=== PATIENT | female | born 1940 | race Caucasian/White ===

== ENCOUNTER 2021-12-04 12:22 | Emergency (ER) | payer MEDICARE ==
[~2021-12-04] VITALS: Ht 160 cm; Wt 47.6 kg
--- NOTE | 2021-12-04 12:43 | NUR ---
Dr Godinez at the bedside for MSE.
[2021-12-04] MEDS ORDERED: ACETAMINOPHEN ES 500 MG TABLET PO ONE (12:45)
[2021-12-04] MEDS ORDERED: SENN-92 PO (12:50)
[2021-12-04] MEDS ORDERED: AMLO-212 PO (12:50)
[2021-12-04] MEDS ORDERED: ASPI81TA31 PO (12:50)
[2021-12-04] MEDS ORDERED: MELA3TAB41 PO (12:50)
[2021-12-04] MEDS ORDERED: RIVA10TA PO (12:50)
[2021-12-04] MEDS ORDERED: DIGO125T PO (12:50)
[2021-12-04] MEDS ORDERED: ESCI20TA PO (12:50)
[2021-12-04] MEDS ORDERED: ATOR40TA PO (12:50)
[2021-12-04] MEDS ORDERED: METO50TA16 PO (12:50)
[2021-12-04] MEDS ORDERED: ACETAMINOPHEN ES 500 MG TABLET ONE (13:05)
--- NOTE | 2021-12-04 13:05 | NUR ---
Pt out of Er for Ct scan.
--- NOTE | 2021-12-04 13:22 | NUR ---
Pt back from Ct, Tylenol crushed and given w/ Apple sauce.
[2021-12-04 13:43] LABS: CARBON DIOXIDE 31 mmol/L (21-32); CHLORIDE 104 mmol/L (98-107); GLUCOSE 125 mg/dL (74-106); MEAN CORPUSCULAR HEMOGLOBIN 30.7 uug (24.7-32.8); MEAN CORPUSCULAR VOLUME 90.5 fL (75.5-95.3); PLATELET COUNT (AUTO) 215 K/uL (179-408); POTASSIUM 4.2 mmol/L (3.5-5.1); UREA NITROGEN, BLOOD 21 mg/dL (7-18)
[2021-12-04 13:52] LABS: ALANINE AMINOTRANSFERASE 36 U/L (14-59); ALKALINE PHOSPHATASE 153 U/L (50-136); ASPARTATE AMINOTRANSFERASE 30 U/L (15-37); BILIRUBIN,DIRECT 0.1 mg/dL (0.0-0.2); BILIRUBIN,TOTAL 0.3 mg/dL (0.2-1.0); TOTAL PROTEIN, SERUM 7.9 g/dL (6.4-8.2)
[2021-12-04] MEDS ORDERED: AZITHROMYCIN IV 500 MG in IV DEXTROSE 5% 250 ML IV ONE (15:30)
[2021-12-04] MEDS ORDERED: CEFTRIAXONE 1 G in IV DEXTROSE 5% 50 ML IV ONE (15:30)
[2021-12-04] MEDS ORDERED: CEFTRIAXONE /D5W 50ML IVPB **ER PYXIS IV ONE (15:31)
[2021-12-04] MEDS ORDERED: AZITHROMYCIN 500MG/ D5W 250ML IVPB **ER PYXIS ONLY IV ONE (15:32)
[2021-12-04] MEDS ORDERED: LORAZEPAM 2 MG/1 ML VIAL ONE (15:32)
[2021-12-04] MEDS ORDERED: LORAZEPAM 2 MG/1 ML VIAL IV ONE ×2 (15:45→16:00)
--- NOTE | 2021-12-04 16:45 | NUR ---
Pt pulled IV line out, from [facility]. Dr walden made aware.
--- NOTE | 2021-12-04 16:59 | NUR ---
Dr Godinez speaking w/ pt's son, Obi Howard.
--- NOTE | 2021-12-04 17:09 | NUR ---
Pt's son Obi gave verbal consent/requested pt to be discharged AMDr Gretchen Piña and myself listened to consent.
[2021-12-04 17:15] VITALS: BP 130/66
== END 2021-12-04 17:16 | disposition left against medical advice (07) ==
LOC: ER 12:24
DX: S41.112A Laceration without foreign body of left upper arm, initial encounter (principal); W19.XXXA Unspecified fall, initial encounter; Y92.013 Bedroom of single-family (private) house as the place of occurrence of the external cause; Z20.822 Contact with and (suspected) exposure to COVID-19; Z86.73 Personal history of transient ischemic attack (TIA), and cerebral infarction without residual deficits; Z79.01 Long term (current) use of anticoagulants; E78.5 Hyperlipidemia, unspecified; Z53.29 Procedure and treatment not carried out because of patient's decision for other reasons; G93.89 Other specified disorders of brain; M50.30 Other cervical disc degeneration, unspecified cervical region; R00.1 Bradycardia, unspecified; I25.10 Atherosclerotic heart disease of native coronary artery without angina pectoris; M19.90 Unspecified osteoarthritis, unspecified site; Z79.82 Long term (current) use of aspirin; M79.662 Pain in left lower leg; M79.661 Pain in right lower leg; F03.90 Unspecified dementia, unspecified severity, without behavioral disturbance, psychotic disturbance, mood disturbance, and anxiety
CPT/HCPCS: 36415; 70450; 71045; 72125; 73590 ×2; 80048; 80076; 84484; 85025; 85730; 87040 ×2; 87426; 93005; 96365; 96367; 96375; 99285; C9803; J0456; J0696; J2060; U0003; A4663; A9150